=== PATIENT | male | born 1980 | race Caucasian/White ===

== ENCOUNTER 2018-03-12 04:21 | Emergency (ER) | payer BC ==
[~2018-03-12] VITALS: Ht 185.4 cm; Wt 77.2 kg
[~2018-03-12 04:21] MED LIST: NORCO 5/3251 TABLET PO
[2018-03-12 04:56] VITALS: BP 111/78
== END 2018-03-12 05:07 | disposition home or self-care (01) ==
LOC: EME 04:21
PROC: 0HQFXZZ Repair Right Hand Skin, External Approach (ICD-10-PCS; principal; 2018-03-12)
DX: S61.411A Laceration without foreign body of right hand, initial encounter (principal); W25.XXXA Contact with sharp glass, initial encounter; Y93.G1 Activity, food preparation and clean up; Z72.0 Tobacco use
CPT/HCPCS: 99281; 99283